=== PATIENT | female | born 1965 | race Caucasian/White ===

== ENCOUNTER 2018-01-16 16:48 | Inpatient (IN) | payer OTHER ==
[~2018-01-16] VITALS: Ht 160 cm; Wt 72.7 kg
--- NOTE | 2018-01-16 17:36 | ED.ADGEN ---
Past History Past Medical History: Hypertension, Migraines Past Surgical History: Hysterectomy, Other Alcohol Use: None Drug Use: None Adult General Chief Complaint Chief Complaint Right-sided chest pain HPI HPI Patient is a 52-year-old female with sinusitis and recurrent bronchitis who presents with right-sided chest wall pain. She reports initially feeling pain behind right shoulder blade I days ago which went away and then developed right parasternal chest pain/aching for the past 3 days which is been continuous. Pain is described as dull and aching and nonradiating. Chest wall pain worse with coughing, deep breathing, sneezing and movement of of chest wall. Currently rated as moderate no relief with Tylenol prior to ED arrival It is not associated with nausea, vomiting, sweats. Pain is not worse with exertion or relieved by rest. She reports chronic cough with recent green sputum production. No fevers chills, nausea vomiting or sweats. Patient was last treated for walking pneumonia approximately 2 weeks ago. She completed full course of an unknown antibiotic. She denies leg pain, swelling, history of DVT or PE. Cardiac risk factors include hypertension which reports is controlled and paternal history of LA below the age 50. Patient's auto was a heavy drinker and smoker. Patient is a nonsmoker. She denies abdominal pain, nausea, vomiting , flank pain. No other acute symptoms or complaints.[] Review of Systems Review of Systems Review symptoms as per history of present illness. All other review symptoms are negative.[] All other systems were reviewed and found to be within normal limits, except as documented in this note. Allergies Allergies Allergies Coded Allergies Type Severity Reaction Last Updated Verified lisinopril Allergy Intermediate 01/16/18 Yes Physical Exam Physical Exam Constitutional: Well developed, well nourished, no acute distress, non-toxic appearance. [] HENT: Normocephalic, atraumatic, bilateral external ears normal, oropharynx moist, no oral exudates, nose with deviated septum, nasal congestion rhinorrhea[ ] Eyes: PERRLA, EOMI, conjunctiva normal, no discharge. [] Neck: Normal range of motion, no tenderness, supple, no stridor. [] Cardiovascular:Heart rate regular rhythm, no friction rub. Homans signs. [] Lungs & Thorax: Bilateral breath sounds clear to auscultation, right-sided chest wall pain, no crepitus or subcutaneous emphysema. [] Abdomen: Bowel sounds normal, soft, no tenderness, no masses, no pulsatile masses. [] Skin: Warm, dry, no erythema, no rash. [] Back: No tenderness. [] Extremities: No tenderness, no cyanosis, no clubbing, ROM intact, no edema. [] Neurologic: Alert and oriented X 3, normal motor function, normal sensory function, no focal deficits noted. [] Psychologic: Affect normal, judgement normal, mood normal. [] Current Patient Data Vital Signs Vital Signs Date Time Temp Pulse Resp B/P (MAP) Pulse Ox O2 Delivery O2 Flow Rate FiO2 01/16/18 16:50 99.0 74 16 98 Room Air EKG EKG [EKG: Normal sinus rhythm, rate 76, no acute ST-T wave changes, QTC 389.] Radiology/Procedures Radiology/Procedures [Chest x-ray: No acute cardiopulmonary disease on pulmonary ED read] Course & Med Decision Making Course & Med Decision Making Pertinent Labs and Imaging studies reviewed. (See chart for details) [Atypical chest pain. Work, imaging studies pending. Care endorsed her and coming ERP at 1800] Final Impression Final Impression [] Dragon Disclaimer Dragon Disclaimer This electronic medical record was generated, in whole or in part, using a voice recognition dictation system. SAVANNAH GILBERT DO Jan 16, 2018 17:36
--- NOTE | 2018-01-16 17:46 | EKG ---
[address] [address] Test Date: 2018-01-16 Test Time: 16:57:25 Pat Name: JOSSY LANGE Department: Room: Gender: F Title Camera Operator: DAVID : [id number] Requested By: SAVANNAH GILBERT Order Number: [id number] Reading MD: Denton Hayes Measurements Intervals [place] Rate: 76 P: 49 SD: 138 QRS: 28 QRSD: 84 T: 50 QT: 342 QTc: 389 Interpretive Statements SINUS RHYTHM NO SPECIFIC ECG ABNORMALITIES RI6.01 No previous ECG available for comparison Electronically Signed On 01-18-2018 12:53:28 CDT by Denton Hayes
[2018-01-16 19:15] LABS: BASO # 0.1 x10^3/uL (0.0-0.2); BASO % 1 % (0-3); EOS # 0.2 x10^3/uL (0.0-0.7); EOS % 2 % (0-3); HEMATOCRIT 43.6 % (36.0-47.0); HEMOGLOBIN 14.8 g/dL (12.0-15.5); LYMPH # 2.6 x10^3/uL (1.0-4.8); LYMPH % 29 % (24-48); MEAN CORPUSCULAR HEMOGLOBIN 30 pg (25-35); MEAN CORPUSCULAR HGB CONC 34 g/dL (31-37); MEAN CORPUSCULAR VOLUME 89 fL (79-100); MONO # 0.6 x10^3/uL (0.0-1.1); MONO % 6 % (0-9); NEUT # 5.5 x10^3uL (1.8-7.7); NEUT % 62 % (31-73); PLATELET COUNT 392 x10^3/uL (140-400); RED BLOOD COUNT 4.89 x10^6/uL (3.50-5.40); RED CELL DISTRIBUTION WIDTH 13.6 % (11.5-14.5); WHITE BLOOD COUNT 8.9 x10^3/uL (4.0-11.0)
[2018-01-16 19:39] LABS: C REACTIVE PROTEIN 4.3 mg/L (0-3.3); CALCIUM 9.1 mg/dL (8.5-10.1); CREATININE 0.8 mg/dL (0.6-1.0); GFR 75.3; TOTAL BILIRUBIN 0.6 mg/dL (0.2-1.0); TOTAL PROTEIN 8.1 g/dL (6.4-8.2)
[2018-01-16 19:41] LABS: POTASSIUM 4.1 mmol/L (3.5-5.1)
[2018-01-16] MEDS ORDERED: MORPHINE SULFATE 4 MG/ML DISP.SYRIN. IV PRN (20:30)
[2018-01-16] MEDS ORDERED: IOHEXOL 300 MG/ML 75 ML VIAL. IV ONE (21:30)
--- NOTE | 2018-01-16 21:57 | RAD ---
Indication: Chest pain and back pain radiating to the right. Hypertension Technique: Axial images and coronal and sagittal maximum intensity projection reformatted images are provided. 75 mL of intravenous Omnipaque 300 was administered without complication. Comparison chest radiograph is from earlier today. One or more of the following individualized dose reduction techniques were utilized for this examination: 1. Automated exposure control 2. Adjustment of the mA and/or kV according to patient size 3. Use of iterative reconstruction technique Findings: The contrast bolus is satisfactory. There is no filling defect to suggest pulmonary embolism. There is no aortic aneurysm or dissection, there is minimal atheromatous disease in the thoracic aorta. The heart is not enlarged. There is no hilar or mediastinal adenopathy. Central airways are patent. There is no pleural effusion. There are bands of presumed atelectasis in the lung bases. There is also dependent atelectasis. There is no consolidation. There is no worrisome pulmonary nodule. There are minimal degenerative changes in the spine. There is fatty infiltration of the liver. IMPRESSION: 1. Negative for pulmonary embolism. 2. Minimal atelectasis in the lung bases. Electronically signed by: Tim Ferro MD (01/16/2018 9:53 PM) [facility]
[2018-01-16 22:38] VITALS: BP 137/91
--- NOTE | 2018-01-16 22:38 | NUR ---
PT arrived from the ED via cart/ EMS admitted for chest pain. Pt is accompanied by her . PT is A&O, VSS, afebrile, rates pain at 7//10 substernal chest pain.
[2018-01-16] MEDS: KETOROLAC 30 MG/ML VIAL. IV PRN (23:00)
[2018-01-16] MEDS ORDERED: METOPROLOL SUCC 24HR ER 50 MG TAB.ER.24H. PO SCH (23:30)
[2018-01-17] MEDS ORDERED: BUPR100T7 PO (00:35)
[2018-01-17] MEDS ORDERED: ELET40TA PO (00:35)
[2018-01-17 03:00] VITALS: BP 116/71
[2018-01-17 06:41] LABS: BASO # 0.1 x10^3/uL (0.0-0.2); BASO % 1 % (0-3); EOS # 0.2 x10^3/uL (0.0-0.7); EOS % 2 % (0-3); HEMATOCRIT 37.7 % (36.0-47.0); LYMPH # 2.1 x10^3/uL (1.0-4.8); LYMPH % 26 % (24-48); MEAN CORPUSCULAR HEMOGLOBIN 31 pg (25-35); MEAN CORPUSCULAR HGB CONC 35 g/dL (31-37); MEAN CORPUSCULAR VOLUME 89 fL (79-100); MONO # 0.6 x10^3/uL (0.0-1.1); MONO % 7 % (0-9); NEUT # 5.2 x10^3uL (1.8-7.7); NEUT % 64 % (31-73); PLATELET COUNT 335 x10^3/uL (140-400); RED BLOOD COUNT 4.25 x10^6/uL (3.50-5.40); RED CELL DISTRIBUTION WIDTH 13.3 % (11.5-14.5); WHITE BLOOD COUNT 8.1 x10^3/uL (4.0-11.0)
[2018-01-17 06:42] LABS: CALCIUM 8.3 mg/dL (8.5-10.1); CREATININE 0.9 mg/dL (0.6-1.0); GFR 65.8; POTASSIUM 3.5 mmol/L (3.5-5.1)
[2018-01-17 07:25] VITALS: BP 124/74
--- NOTE | 2018-01-17 07:41 | RAD ---
PROCEDURE: CHEST AP ONLY CLINICAL INDICATION: coughing up phlegm with chest and nasal congestion for one month, chest pain. Non smoker COMPARISON: None FINDINGS: No pneumothorax identified. Cardiac and mediastinal contours unremarkable. No pulmonary consolidation or acute airspace disease. No acute osseous abnormalities identified. IMPRESSION: No pulmonary consolidation or acute airspace disease. Electronically signed by: Sanjeev Galvez DO (01/17/2018 7:37 AM) [facility]
[2018-01-17] MEDS: KETOROLAC 30 MG/ML VIAL. IV PRN (08:29)
[2018-01-17] MEDS ORDERED: ASPIRIN 81 MG TAB.CHEW PO SCH (09:00)
--- NOTE | 2018-01-17 09:57 | PDOC2 ---
CONSULT Date of Admission DATE: 01/17/18 TIME: 09:56 Reason for Consult: atypical chest pain, family history of premature CAD Problem List Problems Medical Problems: (1) Pleural disorder Status: Acute History of Present Illness Ms Hooper is a 52 year old female with history of hypertension. She presented to the ED last night with complaints of chest pain. She reports chronic sinusitis for months and surgery planned in about 2 weeks. She has persistent post nasal drip, cough with occasional green sputum, and "scratchy voice". She began having subscapular back pain 1 week ago. Pain was sharp and unchanged by exertion, worse when laying down, better with sitting up. Pain has been constant since that time. 3 days ago she began to have radiation to her right chest and occasionally below her right breast. The chest pain has also been continuous, worse with laying back and improved with sitting forward. Chest pain is not increased with exertion, or deep inspiration. Chest pain is not reproducible with palpation. She reports some improvement with toradol but still present. She denies any prior symptoms, she denies palpitations, lightheadedness or syncope. She is very physically active, recently ran a [employer] without problems. She does report since onset of her upper respiratory symptoms she has cut back and now runs about 3 miles twice weekly. Cardiovascular: HTN CENTRAL NERVOUS SYSTEM: Migraine Family History premature coronary disease <age 50 in her dad. Social History non smoker, no significant ETOH, no illicit drugs. 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 Current Medications Current Medications Morphine Sulfate (Morphine 4mg Syringe) 2 mg PRN Q2HR PRN IV PAIN; Start at 20:30 Ketorolac Tromethamine (Toradol) 30 mg PRN BID PRN IV pleuretic cp Last administered on 01/17/18at 08:29; Start 01/16/18 at 20:15; Stop 01/21/18 at 20:14 Aspirin (Children'S Aspirin) 81 mg DAILY PO Last administered on 01/17/18at 08: 29; Start 01/17/18 at 09:00 Iohexol (Omnipaque 300 Mg/ml) 75 ml 1X ONCE IV Last administered on 01/16/18at 21:39; Start 01/16/18 at 21:30; Stop 01/16/18 at 21:31; Status DC Metoprolol Succinate (Toprol Xl) 100 mg HS PO Last administered on 01/16/18at 23 :35; Start 01/16/18 at 23:30 Active Scripts Active Reported Wellbutrin Sr (Bupropion Hcl) 100 Mg Tablet.er 1 Tab PO DAILYWBKFT Relpax (Eletriptan Hbr) 40 Mg Tablet 40 Mg PO Allergies: Coded Allergies: lisinopril (Verified Allergy, Intermediate, 01/16/18) Review of System as per HPI or negative VITALS Vital Signs Date Time Temp Pulse Resp B/P (MAP) Pulse Ox O2 Delivery O2 Flow Rate FiO2 01/17/18 07:25 98.3 62 18 124/74 (91) 97 Room Air Labs Laboratory Tests Test 01/16/18 18:53 01/17/18 05:39 White Blood Count 8.9 x10^3/uL (4.0-11.0) 8.1 x10^3/uL (4.0-11.0) Red Blood Count 4.89 x10^6/uL (3.50-5.40) 4.25 x10^6/uL (3.50-5.40) Hemoglobin 14.8 g/dL (12.0-15.5) 13.0 g/dL (12.0-15.5) Hematocrit 43.6 % (36.0-47.0) 37.7 % (36.0-47.0) Mean Corpuscular Volume 89 fL (79-100) 89 fL (79-100) Mean Corpuscular Hemoglobin 30 pg (25-35) 31 pg (25-35) Mean Corpuscular Hemoglobin Concent 34 g/dL (31-37) 35 g/dL (31-37) Red Cell Distribution Width 13.6 % (11.5-14.5) 13.3 % (11.5-14.5) Platelet Count 392 x10^3/uL (140-400) 335 x10^3/uL (140-400) Neutrophils (%) (Auto) 62 % (31-73) 64 % (31-73) Lymphocytes (%) (Auto) 29 % (24-48) 26 % (24-48) Monocytes (%) (Auto) 6 % (0-9) 7 % (0-9) Eosinophils (%) (Auto) 2 % (0-3) 2 % (0-3) Basophils (%) (Auto) 1 % (0-3) 1 % (0-3) Neutrophils # (Auto) 5.5 x10^3uL (1.8-7.7) 5.2 x10^3uL (1.8-7.7) Lymphocytes # (Auto) 2.6 x10^3/uL (1.0-4.8) 2.1 x10^3/uL (1.0-4.8) Monocytes # (Auto) 0.6 x10^3/uL (0.0-1.1) 0.6 x10^3/uL (0.0-1.1) Eosinophils # (Auto) 0.2 x10^3/uL (0.0-0.7) 0.2 x10^3/uL (0.0-0.7) Basophils # (Auto) 0.1 x10^3/uL (0.0-0.2) 0.1 x10^3/uL (0.0-0.2) D-Dimer (Navya) 0.28 mg/L (0.00-0.50) Sodium Level 140 mmol/L (136-145) 139 mmol/L (136-145) Potassium Level 4.1 mmol/L (3.5-5.1) 3.5 mmol/L (3.5-5.1) Chloride Level 103 mmol/L (98-107) 105 mmol/L (98-107) Carbon Dioxide Level 29 mmol/L (21-32) 28 mmol/L (21-32) Anion Gap 8 (6-14) 6 (6-14) Blood Urea Nitrogen 7 mg/dL (7-20) 11 mg/dL (7-20) Creatinine 0.8 mg/dL (0.6-1.0) 0.9 mg/dL (0.6-1.0) Estimated GFR (Cockcroft-Gault) 75.3 65.8 BUN/Creatinine Ratio 9 (6-20) Glucose Level 90 mg/dL (70-99) 84 mg/dL (70-99) Calcium Level 9.1 mg/dL (8.5-10.1) 8.3 mg/dL (8.5-10.1) Total Bilirubin 0.6 mg/dL (0.2-1.0) Aspartate Amino Transf (AST/SGOT) 32 U/L (15-37) Alanine Aminotransferase (ALT/SGPT) 29 U/L (14-59) Alkaline Phosphatase 105 U/L (46-116) Troponin I Quantitative < 0.017 ng/mL (0-0.055) < 0.017 ng/mL (0-0.055) C-Reactive Protein 4.3 mg/L (0-3.3) Total Protein 8.1 g/dL (6.4-8.2) Albumin 4.0 g/dL (3.4-5.0) Albumin/Globulin Ratio 1.0 (1.0-1.7) Creatine Kinase 67 U/L (26-192) Images EKG - sinus rhythm, no acute abn Assessment/Plan 1. Chest pain, atypical - likely costochondritis. Will check echo to rule out pericarditis or effusion. Flakita negative x2 over 12 hours. EKG unremarkable. Check lipids. 2. hypertension - controlled on current medications. 3. chronic sinusitis with acute bronchitis - mgmt per PCP If echo normal could be discharged home. RF reduction and heart healthy lifestyle. Could consider outpatient stress test if pre-op risk stratification is required. MARIS BAKER NUTRITION DIRECTOR Jan 17, 2018 09:57
--- NOTE | 2018-01-17 11:13 | HP ---
ADMIT DATE: 01/17/2018 HISTORY OF PRESENT ILLNESS: The patient is a 52-year-old female patient, who came to the Emergency Room complaining of chest pain, recurrent cough and chronic sinusitis. The pain is mostly right-sided. It initially started feeling in her right shoulder blade one day ago, which went away and then developed right parasternal chest pain. The right parasternal chest pain has been there for the last 3 days continuous with the pain is described as dull, aching, nonradiating, worse with coughing and deep breathing, sneezing, movement of the chest wall. The pain is not associated with any nausea, vomiting or diaphoresis, not aggravated by exertion, relieved by rest. She apparently has problem with her sinuses since August this year and she is actually scheduled for sinus surgery on 01/27/2018. She was extensively investigated in the Emergency Room and her lab work was mostly unremarkable. She has had chest x-ray and CT angio of the chest, was admitted for further evaluation and to consult the cardiology team. PAST MEDICAL HISTORY: Significant for hypertension, migraine headache and chronic sinusitis. PAST SURGICAL HISTORY: Significant for left hip surgery and total abdominal hysterectomy. ALLERGIES: She is allergic to LISINOPRIL. MEDICATIONS: She is currently on following medications: She is on Wellbutrin SR 100 mg once a day, eletriptan for Relpax 40 mg daily, and she is also on metoprolol succinate 100 mg once a day and Zyrtec 10 mg once a day. FAMILY HISTORY: She has one brother older and healthy. Her father committed suicide at age of 52 and her mother at age of 65 because of lung cancer. SOCIAL HISTORY: She is , has 2 sons and 2 daughters. She never smoked, does not drink alcohol. 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 REVIEW OF SYSTEMS: The patient denied any blurring of vision, cataract, glaucoma or macular degeneration. Denied any earache, tinnitus or sensorineural deafness. She has stuffy nose and postnasal drip that has been going on for almost from 6 months now. Denied any nausea, vomiting, diarrhea or constipation. Denied any hematemesis, melena or hematochezia. Denied any dysuria, frequency, hematuria. She continued to have cough as well as right parasternal chest pain that has responded to ketorolac. PHYSICAL EXAMINATION: GENERAL: On examining her, she looked well and was clearly in no apparent respiratory distress. There is no pallor, jaundice or cyanosis. No lymphadenopathy, no thyromegaly. No jugular venous distension. No limb edema. VITAL SIGNS: Her heart rate was 74, blood pressure 153/85, temperature was 99, respiratory rate was 16, and oxygen saturation was 98% on room air. HEAD, EYES, EARS, NOSE AND THROAT: Showed normocephalic, atraumatic. NECK: Supple. HEART: Showed normal first and second sounds. No gallop, rub or murmur. CHEST: Clear to auscultation. No crepitation or rhonchi. ABDOMEN: Distended, soft, nontender. No guarding or rigidity. No organomegaly. All hernial orifice intact. Bowel sounds normal. NEUROLOGIC: She is awake, alert, responding appropriately. All cranial nerves intact. EXTREMITIES: She moves extremities without difficulty. She ambulates without assistance or assistive devices. LABORATORY DATA: Showed a white cell count of 8900, hemoglobin 14.8, hematocrit 43.6, MCV 89 and platelet count of 392,000. Her chemistry showed a serum sodium 140, potassium 4.1, chloride 103, bicarbonate 29, anion gap of 8, BUN 7, creatinine 0.8, estimated GFR was 75 mL per minute. Her glucose was 90, calcium was 9.1. Total bilirubin, AST, ALT, alkaline phosphatase were normal. Her CK was only 67. Her first set of cardiac enzymes showed troponin to be less than 0.017. Total protein was 8.1, albumin was 4. D-dimer was 0.28. She has had chest x-ray, which basically showed no pneumothorax identified. Cardiac and mediastinal contours are unremarkable. No pulmonary consolidation or acute airspace disease. No acute osseous abnormalities identified. She has had a chest CT angio, which showed that there is no filling defect to suggest pulmonary embolism. There is no aortic aneurysm or dissection. There is minimal atheromatous disease in the thoracic aorta. The heart is not enlarged. There is no hilar or mediastinal adenopathy, central airways are patent. There is no pleural effusion. There are bands of presumed atelectasis in the lung bases. There is also dependent atelectasis. There is no consolidation. There is no autism in pulmonary nodules. There are minimal degenerative changes in the spine. There is fatty infiltration of the liver. The patient was admitted to do 2 more sets of cardiac enzyme and to consult the Cardiology. LEISA GUSMAN MD DR: ABEL/jace JOB#: [id number] / [id number]
[2018-01-17 13:51] VITALS: BP 115/73
--- NOTE | 2018-01-17 14:03 | NUR ---
Spoke with Chapis Hidalgo NP in regards to Echo results which are within normal limits. Orders for Ibuprofen 400mg TID x3days, if worsens then see in office. Dr. Rogers notified with plans to discharge today.
[2018-01-17] MEDS ORDERED: IBUP400T18 PO (14:08)
--- NOTE | 2018-01-17 14:08 | CARD ---
MR#: [id number] Date of Study: 01/17/2018 Ordering Physician: MARIS BAKER, Referring Physician: LEISA GUSMAN, Tech: PRECIOUS Navarro APPROVED REPORT EXAM: Two-dimensional and M-mode echocardiogram with Doppler and color Doppler. Other Information Quality : Average INDICATION Chest Pain 2D DIMENSIONS Left Atrium(2D)3.2 (1.6-4.0cm)IVSd0.6 (0.7-1.1cm) Aortic Root(2D)2.7 (2.0-3.7cm)LVDd5.0 (3.9-5.9cm) LVOT Diameter2.0 (1.8-2.4cm)IVSs0.5 (0.8-1.2cm) LVDs3.5 (2.5-4.0cm)FS (%) 29.1 % SV65.6 mlLVEF(%)55.6 (>50%) Aortic Valve AoV Peak Doug.122.3cm/Marisol Peak GR.6.0mmHg LVOT Peak Doug.107.1cm/sAVA (VMAX)2.81cm2 Mitral Valve MV E Omsqgblo29.0cm/sMV DECEL [id number] MV A Eefddebz85.5cm/sE/A Ratio2.0 LEFT VENTRICLE The left ventricle is normal size. There is normal left ventricular wall thickness. The left ventricu lar systolic function is normal and the ejection fraction is within normal range. The Ejection Fracti on is 55-60%. There is normal LV segmental wall motion. The left ventricular diastolic function and f illing is normal for age. RIGHT VENTRICLE The right ventricle is normal size. There is normal right ventricular wall thickness. The right ventr icular systolic function is normal. ATRIA The left atrium size is normal. The right atrium size is normal. The interatrial septum is intact wit h no evidence for an atrial septal defect or patent foramen ovale as noted on 2-D or Doppler imaging. AORTIC VALVE The aortic valve is trileaflet. Doppler and Color Flow revealed trace aortic regurgitation. There is no significant aortic valvular stenosis. MITRAL VALVE The mitral valve is normal in structure and function. There is no evidence of mitral valve prolapse. There is no mitral valve stenosis. Doppler and Color-flow revealed trace mitral regurgitation. TRICUSPID VALVE The tricuspid valve is normal in structure and function. Doppler and Color Flow revealed trace tricus pid regurgitation. There is no tricuspid valve stenosis. PULMONIC VALVE The pulmonic valve is not well visualized. Doppler and Color Flow revealed trace pulmonic valvular re gurgitation. There is no pulmonic valvular stenosis. GREAT VESSELS The aortic root is normal in size. The IVC is normal in size and collapses >50% with inspiration. PERICARDIAL EFFUSION There is no pleural effusion. There is no evidence of significant pericardial effusion. Critical Notification Critical Value: No <Conclusion> The left ventricular systolic function is normal and the ejection fraction is within normal range. The Ejection Fraction is 55-60%. There is normal LV segmental wall motion. Signed by : Alfredo Parekh, Electronically Approved : 01/17/2018 14:07:17
--- NOTE | 2018-01-17 14:18 | NUR ---
Patient discharged at this time and given dc information, patient able to verbalize at this time. Pt ambulated off unit with spouse to personal car. Belongings left with patient and IV discontinued.
--- NOTE | 2018-01-17 20:09 | DS ---
DATE OF DISCHARGE: 01/17/2018 HISTORY OF PRESENT ILLNESS: The patient was admitted with a complaint of chest pain that has been with recurrent cough and chronic sinusitis. The pain is mostly right-sided started initially in the right shoulder blade one day ago and then went away, and she then developed this right parasternal chest pain that has been there for the last 3 days, continuous with pain, described as dull and aching, nonradiating, worse with coughing and deep breathing, sneezing, movement of chest wall. The pain is not associated with any nausea, vomiting or diaphoresis. It is not aggravated by exertion and not relieved by rest. She has had an EKG as well as has had 3 sets of cardiac enzymes that ruled out myocardial infarction. She was seen in consultation by the Cardiology team and they recommended an echocardiogram that was done and was apparently normal, although I do not have the actual report. The chef de partie recommended the patient can be discharged safely to continue on ibuprofen for her pain. PHYSICAL EXAMINATION: GENERAL: When I examined her today, she looked well, slightly pale without jaundice, cyanosis, or thyromegaly. No jugular venous distension. No limb edema. VITAL SIGNS: Her heart rate was 60, blood pressure 115/73, temperature was 98.2, respiratory rate was 18 and oxygen saturation was 97%. HEAD, EYES, EARS, NOSE AND THROAT: Showed normocephalic, atraumatic. NECK: Supple. HEART: Showed normal first and second sounds. No gallop, rub or murmur. CHEST: Clear to auscultation. No crepitation or rhonchi. ABDOMEN: Distended, soft, nontender. NEUROLOGIC: She was awake, alert, responding appropriately. Cranial nerves intact. EXTREMITIES: She moves extremities without difficulty. She ambulates without assistance or assistive devices. LABORATORY DATA: As of this morning showed a serum sodium 139, potassium 3.5, chloride 105, bicarbonate 28, anion gap of 6, BUN 11, creatinine 0.9. Estimated GFR was 66 mL per minute. Her glucose was 84, calcium was 8.3. CK was 67. Two sets of cardiac enzymes were normal. TSH was 1.355. Her white cell count was 8100, hemoglobin 13, hematocrit 38, MCV 89 and platelet count 335,000. Her D-dimer was 0.28. Her chest x-ray showed no pneumothorax identified. Cardiac and mediastinal contours unremarkable. No pulmonary consolidation or acute airspace disease was seen. No acute osseous abnormalities identified. She did have chest CT angio which basically showed that there is no evidence of pulmonary embolism. There is no aortic aneurysm or dissection. There is minimal atheromatous disease of the thoracic aorta. The heart is not enlarged. There is no hilar or mediastinal lymphadenopathy. Central airways are patent. There is no pleural effusion. There is dependent atelectasis. DISCHARGE MEDICATIONS: She was discharged home to continue on her Wellbutrin 100 mg once a day, eletriptan for Relpax 40 mg once a day as needed for migraine headache, and ibuprofen 400 mg 3 times a day. FINAL DISCHARGE DIAGNOSES: Atypical chest pain, most likely musculoskeletal. There is no evidence of myocardial infarction. No aortic dissection, pneumothorax, pneumonia or pericarditis. Chronic sinusitis, migraine headache, depression, anxiety. LEISA GUSMAN MD DR: ABEL/jace JOB#: [id number] / [id number]
== END 2018-01-17 14:18 | disposition home or self-care (01) | DRG 313 ==
LOC: ER 16:48 → ICU 20:00
PROVIDERS: ADMIT Internal Medicine; ATTEND Internal Medicine
DX: R07.89 Other chest pain (principal); I10 Essential (primary) hypertension; G43.909 Migraine, unspecified, not intractable, without status migrainosus; F41.9 Anxiety disorder, unspecified; J32.9 Chronic sinusitis, unspecified; J20.9 Acute bronchitis, unspecified; F32.9 Major depressive disorder, single episode, unspecified; Z90.710 Acquired absence of both cervix and uterus; Z82.49 Family history of ischemic heart disease and other diseases of the circulatory system; Z88.8 Allergy status to other drugs, medicaments and biological substances; Z79.899 Other long term (current) drug therapy; Z80.1 Family history of malignant neoplasm of trachea, bronchus and lung; Z87.01 Personal history of pneumonia (recurrent)
CPT/HCPCS: 36415; 71045; 71275; 80048; 80053; 82550; 84443; 84484; 85025; 85379; 86140; 87641; 93005; 93306; G0238; J1885; Q9967; 99285-25